=== PATIENT | male | born 1970 | race Caucasian/White ===

== ENCOUNTER 2017-02-04 09:41 | Inpatient (IN) | payer OTHER ==
[2017-02-04 10:15] VITALS: BMI 29.7
--- NOTE | 2017-02-04 16:27 | HP ---
COWS - Scale Resting Pulse: 1= [place] 81-100 Sweatin=Flushed/Facial Moisture Restless Observation: 1= Difficult to Sit Still Pupil Size: 0= Normal to Room Light Bone or Joint Aches: 2= Severe Diffuse Aches Runny Nose/ Eye Tearin= Runny Nose/Eyes GI Upset > 30mins: 2= Nausea/Diarrhea Tremor Observation: 2= Slight Tremor Visible Yawning Observation: 1= 1-2x During Session Anxiety or Irritability: 2=Irritable/Anxious Goose Flesh Skin: 0=Smooth Skin COWS Score: 15 Admission ROS S - HPI Chief Complaint: "I am just trying to get my life in order and be normal." Patient is here to Detox from Heroin. Allergies/Adverse Reactions: Allergies Allergy/AdvReac Type Severity Reaction Status Date / Time No Known Allergies Allergy Verified 02/04/17 12:51 History of Present Illness: Pt. is a 46 YO male here to detox from Heroin. Patient has had 1 previous Detox and 1 previous Rehab admission at [facility] in the past. Longest period without Substance use: approx. 6 months: (11/2015 - 04/2016). Exam Limitations: No Limitations - Ebola screening Have you traveled outside of the country in the last 21 days: No Have you had contact with anyone from an Ebola affected area: No Have you been sick,other than usual withdrawal symptoms: No - Review of Systems Constitutional: Chills, Diaphoresis, Fever, Malaise, Night Sweats, Changes in sleep EENT: reports: Blurred Vision, Tearing, Nose Congestion, Sinus Pressure Respiratory: reports: No Symptoms reported Cardiac: reports: No Symptoms Reported GI: reports: Constipated, Nausea, Vomiting, Abdominal cramping : reports: No Symptoms Reported Musculoskeletal: reports: Back Pain (Lower Back.) Integumentary: reports: No Symptoms Reported Neuro: reports: Tremors Endocrine: reports: No Symptoms Reported Hematology: reports: No Symptoms Reported Psychiatric: reports: Judgement Intact, Mood/Affect Appropiate, Orientated x3, Anxious, Depressed (No Previous Treatment.) Other Systems: Reviewed and Negative Patient History - Patient Medical History Hx Anemia: No Hx Asthma: No Hx Chronic Obstructive Pulmonary Disease (COPD): No Hx Cancer: No Hx Cardiac Disorders: No Hx Congestive Heart Failure: No Hx Hypertension: Yes (non compliant with meds. - recently.) Hx Hypercholesterolemia: Yes (Took medication several months ago, stopped due to side effects, no F/U.) Hx Pacemaker: No HX Cerebrovascular Accident: No Hx Seizures: No Hx Dementia: No Hx Diabetes: Yes (Takes Metformin.) Hx Gastrointestinal Disorders: No Hx Liver Disease: No Hx Genitourinary Disorders: No Hx Sexually Transmitted Disorders: No Hx Renal Disease (ESRD): No Hx Thyroid Disease: No Hx Human Immunodeficiency Virus (HIV): No (Last Tested: 2002: NEGATIVE.) Hx Hepatitis C: No (Last Tested: 2002: NEGATIVE.) Hx Depression: Yes (No Treatment.) Hx Suicide Attempt: No (PATIENT DENIES CURRENT SI / HI.) Hx Bipolar Disorder: No Hx Schizophrenia: No Other Medical History: DENIES. - Patient Surgical History Past Surgical History: No Hx Neurologic Surgery: No Hx Cataract Extraction: No Hx Cardiac Surgery: No Hx Lung Surgery: No Hx Breast Surgery: No Hx Breast Biopsy: No Hx Abdominal Surgery: No Hx Appendectomy: No Hx Cholecystectomy: No Hx Genitourinary Surgery: No Hx Section: No Hx Orthopedic Surgery: No Anesthesia Reaction: No - PPD History Previous Implant?: Yes Documented Results: Negative w/o proof Implanted On Prior R Admission?: Yes Date: 10/07/15 Results: 0 mm PPD to be Administered?: Yes - Reproductive History Patient is a Female of Child Bearing Age (11 -55 yrs old): No (PATIENT IS MALE.) - Smoking Cessation Smoking history: Current every day smoker Have you smoked in the past 12 months: Yes Aproximately how many cigarettes per day: 20 Cigars Per Day: 0 Hx Chewing Tobacco Use: No Initiated information on smoking cessation: Yes 'Breaking Loose' booklet given: 02/04/17 (GIVEN ON UNIT.) - Substance & Tx. History Hx Alcohol Use: No Hx Substance Use: Yes Substance Use Type: Heroin, Opiates (Street Methadone.) Hx Substance Use Treatment: Yes (1 Previous detox and 1 Previous Rehab admission.) - Substances Abused Heroin Route: Inhalation Frequency: Daily Amount used: 6-10 BAGS Age of first use: 23 Date of Last Use: 02/03/[address] ST[address] METHADONE Route: Oral Frequency: 1-2 times per week Amount used: 20-40MG Age of first use: 23 Date of Last Use: 01/31/17 Family Disease History - Family Disease History Family Disease History: Diabetes: Father (in [place]), Mother (in [place]) Admission Physical Exam [facility] - Vital Signs Vital Signs: Vital Signs - 24 hr 02/04/17 10:14 Temperature 97.6 F Pulse Rate 85 Respiratory 18 Rate Blood Pressure 156/96 - Physical General Appearance: Yes: No Apparent Distress, Nourished, Appropriately Dressed , Tremorous, Irritable, Anxious HEENTM: Yes: Hearing grossly Normal, Normocephalic, Normal Voice, FELICE, Pharynx Normal Respiratory: Yes: Chest Non-Tender, Lungs Clear, No Respiratory Distress, No Accessory Muscle Use Neck: Yes: No masses,lesions,Nodules, Supple, Trachea in good position Breast: Yes: Breast Exam Deferred Cardiology: Yes: Regular Rhythm, Regular Rate, S1, S2 Abdominal: Yes: Normal Bowel Sounds, Non Tender, Flat, Soft Genitourinary: Yes: Within Normal Limits Back: Yes: Decreased Range of Motion Musculoskeletal: Yes: Gait Steady, Back pain Extremities: Yes: Normal Range of Motion, Non-Tender, Tremors Neurological: Yes: Fully Oriented, Alert, Normal Mood/Affect, Normal Response Integumentary: Yes: Normal Color, Dry, Warm Lymphatic: Yes: Within Normal Limits - Diagnostic (1) Nicotine dependence Current Visit: Yes Status: Chronic Qualifiers: Nicotine product type: cigarettes Substance use status: uncomplicated Qualified Code(s): F17.210 - Nicotine dependence, cigarettes, uncomplicated (2) Opioid dependence with withdrawal Current Visit: Yes Status: Acute (3) Hypertension Current Visit: Yes Status: Chronic Qualifiers: Hypertension type: essential hypertension Qualified Code(s): I10 - Essential (primary) hypertension (4) Type II diabetes mellitus Current Visit: Yes Status: Chronic Qualifiers: Diabetes mellitus complication status: without complication Diabetes mellitus assisted insulin use: without assisted use Qualified Code(s): E11.9 - Type 2 diabetes mellitus without complications (5) Depression (emotion) Current Visit: Yes Status: Chronic Qualifiers: Depression Type: unspecified Qualified Code(s): F32.9 - Major depressive disorder, single episode, unspecified (6) Hypercholesterolemia Current Visit: Yes Status: Chronic Cleared for Admission [facility] - Detox or Rehab S Level of Care: Medically Managed Detox Regimen/Protocol: Methadone S Breath Alcohol Content Breath Alcohol Content: 0 Urine Drug Screen - Results Drug Screen Negative: No Urine Drug Screen Results: OPI-Opiates, MTD-Methadone, TCA-Tricyclic Antidepress
[2017-02-04] MEDS ORDERED: ACETAMINOPHEN 325 MG TABLET (FP) PO PRN (17:57)
[2017-02-04] MEDS ORDERED: NICOTINE POLACRILEX 2 MG GUM BC PRN (17:57)
[2017-02-04] MEDS ORDERED: MAG HYDROX/AL HYDROX/SIMETH 30 ML UNIT-DOSE CUP PO PRN (17:57)
[2017-02-04] MEDS ORDERED: MAGNESIUM CITRATE 300 ML BOTTLE PO PRN (17:57)
[2017-02-04] MEDS ORDERED: diphenhydrAMINE HCL 50 MG CAPSULE PO PRN (17:57)
[2017-02-04] MEDS ORDERED: guaiFENesin/D-METHORPHAN HB 10 ML UNIT-DOSE CUPS PO PRN (17:57)
[2017-02-04] MEDS ORDERED: MENTHOL/PHENOL 1 EACH UD MM PRN (17:57)
[2017-02-04] MEDS ORDERED: METHADONE HCL 10 MG TABLET (FOR DETOX USE ONLY) PO ONE ×2 (17:57→23:00)
[2017-02-04] MEDS ORDERED: MAGNESIUM HYDROX 2400MG/30ML ORAL SUSPENSION 30 ML CUP PO PRN (17:57)
[2017-02-04] MEDS ORDERED: P-EPHED 60MG/TRIPROLIDI 2.5MG TABLET PO PRN (17:57)
[2017-02-04] MEDS ORDERED: LOPERAMIDE HCL 2 MG CAPSULE PO PRN (17:57)
[2017-02-04] MEDS: metFORMIN HCL 500 MG TABLET (FP) PO SCH (18:43)
[2017-02-04] MEDS: LISINOPRIL 20 MG TABLET (FP) PO SCH (18:44)
[2017-02-04] MEDS: HYDROCHLOROTHIAZIDE 12.5 MG CAPSULE (FP) PO SCH (18:44)
[2017-02-04] MEDS: diazePAM 5 MG TABLET PO PRN (18:44)
[2017-02-04] MEDS: THIAMINE HCL 100 MG TABLET (FP) PO SCH (22:17)
[2017-02-04 23:06] LABS: URINE APPEARANCE CLEAR; URINE BILIRUBIN NEGATIVE (NEGATIVE); URINE BLOOD NEGATIVE (NEGATIVE); URINE COLOR YELLOW; URINE GLUCOSE (UA) NEGATIVE (NEGATIVE); URINE KETONE NEGATIVE (NEGATIVE); URINE LEUK ESTERASE NEGATIVE (NEGATIVE); URINE NITRITE NEGATIVE (NEGATIVE); URINE PROTEIN NEGATIVE (NEGATIVE); URINE UROBILINOGEN NEGATIVE mg/dL (0.2-1.0)
[2017-02-05] MEDS: diazePAM 5 MG TABLET PO PRN ×5 (00:44→22:06)
[2017-02-05] MEDS: metFORMIN HCL 500 MG TABLET (FP) PO SCH (07:26)
--- NOTE | 2017-02-05 09:25 | EKG ---
Test Reason : Blood Pressure : / mmHG Vent. Rate : 070 BPM Atrial Rate : 070 BPM P-R Int : 140 ms QRS Dur : 094 ms QT Int : 380 ms P-R-T Axes : 050 082 047 degrees QTc Int : 410 ms NORMAL SINUS RHYTHM NON-SPECIFIC INTRA-VENTRICULAR CONDUCTION DELAY NO PREVIOUS ECGS AVAILABLE Confirmed by JESSICA REYNOSO MD ([id number]) on 02/05/2017 9:25:08 AM Referred By: Confirmed By:JESSICA REYNOSO MD
[2017-02-05] MEDS ORDERED: METHADONE HCL 10 MG TABLET (FOR DETOX USE ONLY) PO ONE (10:00)
[2017-02-05] MEDS: LISINOPRIL 20 MG TABLET (FP) PO SCH (10:14)
[2017-02-05] MEDS: PRENATAL VITAMINS W/ FOLIC ACID TABLET (FP) PO SCH (10:14)
[2017-02-05] MEDS: HYDROCHLOROTHIAZIDE 12.5 MG CAPSULE (FP) PO SCH (10:14)
--- NOTE | 2017-02-05 10:16 | HP ---
COWS - Scale Resting Pulse: 1= [place] 81-100 Sweatin=Flushed/Facial Moisture Restless Observation: 1= Difficult to Sit Still Pupil Size: 1= Pupils >than Normal Bone or Joint Aches: 2= Severe Diffuse Aches Runny Nose/ Eye Tearin= Runny Nose/Eyes GI Upset > 30mins: 2= Nausea/Diarrhea Tremor Observation: 2= Slight Tremor Visible Yawning Observation: 1= 1-2x During Session Anxiety or Irritability: 2=Irritable/Anxious Goose Flesh Skin: 0=Smooth Skin COWS Score: 16 Admission ROS S - HPI Allergies/Adverse Reactions: Allergies Allergy/AdvReac Type Severity Reaction Status Date / Time No Known Allergies Allergy Verified 02/04/17 12:51 - Ebola screening Have you traveled outside of the country in the last 21 days: No Have you had contact with anyone from an Ebola affected area: No Have you been sick,other than usual withdrawal symptoms: No Patient History - Patient Medical History Hx Anemia: No Hx Asthma: No Hx Chronic Obstructive Pulmonary Disease (COPD): No Hx Cancer: No Hx Cardiac Disorders: No Hx Congestive Heart Failure: No Hx Hypertension: Yes (non compliant with meds. - recently.) Hx Hypercholesterolemia: Yes (Took medication several months ago, stopped due to side effects, no F/U.) Hx Pacemaker: No HX Cerebrovascular Accident: No Hx Seizures: No Hx Dementia: No Hx Diabetes: Yes (Takes Metformin.) Hx Gastrointestinal Disorders: No Hx Liver Disease: No Hx Genitourinary Disorders: No Hx Sexually Transmitted Disorders: No Hx Renal Disease (ESRD): No Hx Thyroid Disease: No Hx Human Immunodeficiency Virus (HIV): No (Last Tested: 2002: NEGATIVE.) Hx Hepatitis C: No (Last Tested: 2002: NEGATIVE.) Hx Depression: Yes (No Treatment.) Hx Suicide Attempt: No (PATIENT DENIES CURRENT SI / HI.) Hx Bipolar Disorder: No Hx Schizophrenia: No Other Medical History: DENIES. - Patient Surgical History Past Surgical History: No Hx Neurologic Surgery: No Hx Cataract Extraction: No Hx Cardiac Surgery: No Hx Lung Surgery: No Hx Breast Surgery: No Hx Breast Biopsy: No Hx Abdominal Surgery: No Hx Appendectomy: No Hx Cholecystectomy: No Hx Genitourinary Surgery: No Hx Section: No Hx Orthopedic Surgery: No Anesthesia Reaction: No - PPD History Previous Implant?: Yes Documented Results: Negative w/o proof Implanted On Prior [facility] Admission?: Yes Date: 10/07/15 Results: 0 mm - Smoking Cessation Smoking history: Current every day smoker Have you smoked in the past 12 months: Yes Aproximately how many cigarettes per day: 20 Cigars Per Day: 0 Hx Chewing Tobacco Use: No Initiated information on smoking cessation: Yes - Substances Abused Heroin Route: Inhalation Frequency: Daily Amount used: 6-10 BAGS Age of first use: 23 Date of Last Use: 02/03/[address] METHADONE Route: Oral Frequency: 1-2 times per week Amount used: 20-40MG Age of first use: 23 Date of Last Use: 01/31/17 Family Disease History - Family Disease History Family Disease History: Diabetes: Father (in [place]), Mother (in [place]) Admission Physical Exam [facility] - Vital Signs Vital Signs: Vital Signs - 24 hr 02/04/17 02/04/17 02/04/17 10:14 18:58 22:32 Temperature 97.6 F 98.1 F 97.1 F L Pulse Rate 85 77 106 H Respiratory 18 16 20 Rate Blood Pressure 156/96 157/99 122/76 02/05/17 02/05/17 02/05/17 00:30 03:29 03:30 Temperature Pulse Rate Respiratory 18 18 18 Rate Blood Pressure 02/05/17 06:24 Temperature 97.5 F L Pulse Rate 65 Respiratory 16 Rate Blood Pressure 135/90 [facility] Breath Alcohol Content Breath Alcohol Content: 0 Urine Drug Screen - Results Drug Screen Negative: No Urine Drug Screen Results: OPI-Opiates, MTD-Methadone, TCA-Tricyclic Antidepress
[2017-02-05 10:18] LABS: MCH 29.5 pg (25.7-33.7); MCHC 33.3 g/dl (32.0-35.9); MEAN CELL VOLUME 88.6 fl (80-96); MEAN PLT VOLUME 8.8 fl (7.5-11.1); PLATELET COUNT 380 K/MM3 (134-434); WHITE BLOOD COUNT 7.8 K/mm3 (4.0-10.0)
--- NOTE | 2017-02-05 10:19 | PN ---
S CIWA - CIWA Score Nausea/Vomitin Muscle Tremors: 3 Anxiety: 3 Agitation: 2 Paroxysmal Sweats: 1-Minimal Palms Moist Orientation: 0-Oriented Tacttile Disturbances: 1-Very Mild Itch/Numbness Auditory Disturbances: 1-Very Mild Visual Disturbances: 1-Very Mild Sensitivity Headache: 2-Mild CIWA-Ar Total Score: 17 [facility] COWS - Scale Resting Pulse: 1= [place] 81-100 Sweatin= Chills/Flushing Restless Observation: 3= Extraneous Movement Pupil Size: 1= Pupils >than Normal Bone or Joint Aches: 2= Severe Diffuse Aches Runny Nose/ Eye Tearin= Runny Nose/Eyes GI Upset > 30mins: 3= Vomiting/Diarrhea Tremor Observation of Outstretched Hands: 2= Slight Tremor Visible Yawning Observation: 1= 1-2x During Session Anxiety or Irritability: 2=Irritable/Anxious Goose Flesh Skin: 0=Smooth Skin COWS Score: 18 S Progress Note (SOAP) Subjective: alert,irritable,anxious,interrupted sleep,tremor,pain in the body and back Objective: 02/05/17 10:17 Vital Signs Temperature 98.1 F 02/05/17 10:00 Pulse Rate 83 02/05/17 10:00 Respiratory Rate 16 02/05/17 10:00 Blood Pressure 137/89 02/05/17 10:00 O2 Sat by Pulse Oximetry (%) ekg nsr,normal ecg Laboratory Last Values POC Glucometer 146 UNITS (()) 02/04/17 13:01 Urine Color Yellow 02/04/17 21:30 Urine Appearance Clear 02/04/17 21:30 Urine pH 5.0 (5.0-8.0) 02/04/17 21:30 Urine Protein Negative (NEGATIVE) 02/04/17 21:30 Urine Glucose (UA) Negative (NEGATIVE) 02/04/17 21:30 Urine Ketones Negative (NEGATIVE) 02/04/17 21:30 Urine Blood Negative (NEGATIVE) 02/04/17 21:30 Urine Nitrite Negative (NEGATIVE) 02/04/17 21:30 Urine Bilirubin Negative (NEGATIVE) 02/04/17 21:30 Urine Urobilinogen Negative mg/dL (0.2-1.0) 02/04/17 21:30 Ur Leukocyte Esterase Negative (NEGATIVE) 02/04/17 21:30 labs pending Assessment: 02/05/17 10:18 withdrawal symptom Plan: continue detox
[2017-02-05 10:42] LABS: ALK PHOS 101 U/L (45-117); ANION GAP 7 (8-16); BILIRUBIN,TOTAL 0.5 mg/dL (0.2-1.0); CALCIUM 9.7 mg/dL (8.5-10.1); CO2 33 mmol/L (21-32); CREATININE 0.9 mg/dL (0.7-1.3); GLUCOSE,RANDOM 116 mg/dL (74-106); SGOT/AST 10 U/L (15-37); SGPT/ALT 15 U/L (12-78); TOT PROT 6.7 g/dl (6.4-8.2)
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
[2017-02-05] MEDS: ZOLPIDEM TARTRATE 10 MG TABLET (PARK CARE ONLY) PO PRN (22:06)
[2017-02-05] MEDS: THIAMINE HCL 100 MG TABLET (FP) PO SCH (22:06)
[2017-02-06] MEDS: diazePAM 5 MG TABLET PO PRN ×4 (02:57→20:53)
[2017-02-06] MEDS: metFORMIN HCL 500 MG TABLET (FP) PO SCH (07:18)
[2017-02-06] MEDS ORDERED: METHADONE HCL 5 MG TABLET (FOR DETOX USE ONLY) PO ONE (10:00)
[2017-02-06] MEDS: HYDROCHLOROTHIAZIDE 12.5 MG CAPSULE (FP) PO SCH (10:05)
[2017-02-06] MEDS: LISINOPRIL 20 MG TABLET (FP) PO SCH (10:05)
[2017-02-06] MEDS: PRENATAL VITAMINS W/ FOLIC ACID TABLET (FP) PO SCH (10:05)
--- NOTE | 2017-02-06 11:07 | PN ---
[facility] COWS - Scale Resting Pulse: 1= [place] 81-100 Sweatin=Flushed/Facial Moisture Restless Observation: 1= Difficult to Sit Still Pupil Size: 0= Normal to Room Light Bone or Joint Aches: 2= Severe Diffuse Aches Runny Nose/ Eye Tearin= Runny Nose/Eyes GI Upset > 30mins: 2= Nausea/Diarrhea Tremor Observation of Outstretched Hands: 2= Slight Tremor Visible Yawning Observation: 1= 1-2x During Session Anxiety or Irritability: 2=Irritable/Anxious Goose Flesh Skin: 0=Smooth Skin COWS Score: 15 [facility] Progress Note (SOAP) Subjective: Sweating,anxiety,tremors,sweating,interrupted sleep,restless. Objective: 02/06/17 11:06 Last Vital Signs Temp Pulse Resp BP Pulse Ox 97.7 F 92 H 20 147/100 02/06/17 09:42 02/06/17 09:42 02/06/17 09:42 02/06/17 09:42 Laboratory Results - last 24 hr 02/04/17 02/05/17 02/05/17 21:30 06:00 07:22 POC Glucometer 107 Urine Color Yellow Urine Appearance Clear Urine pH 5.0 Ur Specific [place] 1.025 Urine Protein Negative Urine Glucose (UA) Negative Urine Ketones Negative Urine Blood Negative Urine Nitrite Negative Urine Bilirubin Negative Urine Urobilinogen Negative Ur Leukocyte Esterase Negative RPR Titer Nonreactive 02/06/17 05:58 POC Glucometer 130 Urine Color Urine Appearance Urine pH Ur Specific [place] Urine Protein Urine Glucose (UA) Urine Ketones Urine Blood Urine Nitrite Urine Bilirubin Urine Urobilinogen Ur Leukocyte Esterase RPR Titer Assessment: 02/06/17 11:06 Withdrawal sx. Plan: Continue detox
[2017-02-06] MEDS: THIAMINE HCL 100 MG TABLET (FP) PO SCH (22:09)
[2017-02-06] MEDS: ZOLPIDEM TARTRATE 10 MG TABLET (PARK CARE ONLY) PO PRN (22:11)
[2017-02-07] MEDS: diazePAM 5 MG TABLET PO PRN ×4 (01:41→14:33)
[2017-02-07] MEDS ORDERED: CYCLOBENZAPRINE HCL 10 MG TABLET (FP) PO ONE (09:32)
[2017-02-07] MEDS ORDERED: METHADONE HCL 5 MG TABLET (FOR DETOX USE ONLY) PO ONE (10:00)
[2017-02-07] MEDS: HYDROCHLOROTHIAZIDE 12.5 MG CAPSULE (FP) PO SCH (10:22)
[2017-02-07] MEDS: PRENATAL VITAMINS W/ FOLIC ACID TABLET (FP) PO SCH (10:22)
[2017-02-07] MEDS: cloNIDine HCL 0.1 MG TABLET PO SCH ×2 (10:22→22:54)
[2017-02-07] MEDS: LISINOPRIL 20 MG TABLET (FP) PO SCH (10:22)
[2017-02-07] MEDS: CYCLOBENZAPRINE HCL 10 MG TABLET (FP) PO SCH ×2 (14:33→22:54)
--- NOTE | 2017-02-07 14:40 | PN ---
[facility] Progress Note (SOAP) Subjective: Sweating,interrupted sleep,restless Objective: 02/07/17 14:39 Vital Signs - 8 hr 02/07/17 10:00 Temperature 98.4 F Pulse Rate 98 H Respiratory 16 Rate Blood Pressure 141/70 Laboratory Last Values WBC 7.8 K/mm3 (4.0-10.0) 02/05/17 06:00 RBC 4.41 M/mm3 (4.00-5.60) 02/05/17 06:00 Hgb 13.0 GM/dL (11.7-16.9) 02/05/17 06:00 Hct 39.0 % (35.4-49) 02/05/17 06:00 MCV 88.6 fl (80-96) 02/05/17 06:00 MCH 29.5 pg (25.7-33.7) 02/05/17 06:00 MCHC 33.3 g/dl (32.0-35.9) 02/05/17 06:00 RDW 13.0 % (11.9-15.9) 02/05/17 06:00 Plt Count 380 K/MM3 (134-434) D 02/05/17 06:00 MPV 8.8 fl (7.5-11.1) 02/05/17 06:00 Sodium 145 mmol/L (136-145) 02/05/17 06:00 Potassium 5.3 mmol/L (3.5-5.1) H D 02/05/17 06:00 Chloride 105 mmol/L (98-107) 02/05/17 06:00 Carbon Dioxide 33 mmol/L (21-32) H 02/05/17 06:00 Anion Gap 7 (8-16) L 02/05/17 06:00 BUN 21 mg/dL (7-18) H D 02/05/17 06:00 Creatinine 0.9 mg/dL (0.7-1.3) 02/05/17 06:00 Creat Clearance w eGFR > 60 (>60) 02/05/17 06:00 POC Glucometer 126 UNITS (()) 02/07/17 05:49 Random Glucose 116 mg/dL (74-106) H D 02/05/17 06:00 Calcium 9.7 mg/dL (8.5-10.1) 02/05/17 06:00 Total Bilirubin 0.5 mg/dL (0.2-1.0) D 02/05/17 06:00 AST 10 U/L (15-37) L 02/05/17 06:00 ALT 15 U/L (12-78) D 02/05/17 06:00 Alkaline Phosphatase 101 U/L (45-117) 02/05/17 06:00 Total Protein 6.7 g/dl (6.4-8.2) 02/05/17 06:00 Albumin 4.0 g/dl (3.4-5.0) D 02/05/17 06:00 Urine Color Yellow 02/04/17 21:30 Urine Appearance Clear 02/04/17 21:30 Urine pH 5.0 (5.0-8.0) 02/04/17 21:30 Ur Specific [place] 1.025 (1.005-1.025) 02/04/17 21:30 Urine Protein Negative (NEGATIVE) 02/04/17 21:30 Urine Glucose (UA) Negative (NEGATIVE) 02/04/17 21:30 Urine Ketones Negative (NEGATIVE) 02/04/17 21:30 Urine Blood Negative (NEGATIVE) 02/04/17 21:30 Urine Nitrite Negative (NEGATIVE) 02/04/17 21:30 Urine Bilirubin Negative (NEGATIVE) 02/04/17 21:30 Urine Urobilinogen Negative mg/dL (0.2-1.0) 02/04/17 21:30 Ur Leukocyte Esterase Negative (NEGATIVE) 02/04/17 21:30 RPR Titer Nonreactive (NONREACTIVE) 02/05/17 06:00 labs noted Assessment: 02/07/17 14:40 Withdrawal sx. Plan: Continue detox
[2017-02-07] MEDS: THIAMINE HCL 100 MG TABLET (FP) PO SCH (22:55)
[2017-02-07] MEDS: ZOLPIDEM TARTRATE 10 MG TABLET (PARK CARE ONLY) PO PRN (22:56)
[2017-02-08] MEDS: IBUPROFEN 400 MG TABLET (FP) PO PRN ×2 (00:49→10:12)
[2017-02-08] MEDS: hydrOXYzine PAMOATE 50 MG CAPSULE (FP) PO PRN ×2 (00:49→05:29)
[2017-02-08] MEDS: CYCLOBENZAPRINE HCL 10 MG TABLET (FP) PO SCH ×3 (05:27→22:25)
[2017-02-08] MEDS: metFORMIN HCL 500 MG TABLET (FP) PO SCH (07:14)
--- NOTE | 2017-02-08 09:47 | PN ---
S Progress Note (SOAP) Subjective: ALERT,IRRITABLE,INTERRUPTED SLEEP, Objective: 02/08/17 09:46 Vital Signs Temperature 96.3 F L 02/08/17 05:52 Pulse Rate 69 02/08/17 05:52 Respiratory Rate 16 02/08/17 05:52 Blood Pressure 101/56 02/08/17 05:52 O2 Sat by Pulse Oximetry (%) Assessment: 02/08/17 09:46 WITHDRAWAL SYMPTOM Plan: CONTINUE DETOX,DISCHARGE IN AM
[2017-02-08] MEDS ORDERED: METHADONE HCL 10 MG TABLET (FOR DETOX USE ONLY) PO ONE (10:00)
[2017-02-08] MEDS: HYDROCHLOROTHIAZIDE 12.5 MG CAPSULE (FP) PO SCH (10:09)
[2017-02-08] MEDS: PRENATAL VITAMINS W/ FOLIC ACID TABLET (FP) PO SCH (10:09)
[2017-02-08] MEDS: LISINOPRIL 20 MG TABLET (FP) PO SCH (10:09)
[2017-02-08] MEDS: cloNIDine HCL 0.1 MG TABLET PO SCH ×2 (10:09→22:58)
[2017-02-08] MEDS: ZOLPIDEM TARTRATE 10 MG TABLET (PARK CARE ONLY) PO PRN (22:25)
[2017-02-08] MEDS: THIAMINE HCL 100 MG TABLET (FP) PO SCH (22:26)
[2017-02-09] MEDS: hydrOXYzine PAMOATE 50 MG CAPSULE (FP) PO PRN (02:17)
[2017-02-09] MEDS: IBUPROFEN 400 MG TABLET (FP) PO PRN (02:17)
[2017-02-09] MEDS: CYCLOBENZAPRINE HCL 10 MG TABLET (FP) PO SCH (05:02)
[2017-02-09] MEDS ORDERED: METHADONE HCL 5 MG TABLET (FOR DETOX USE ONLY) PO ONE (06:00)
[2017-02-09] MEDS: metFORMIN HCL 500 MG TABLET (FP) PO SCH (07:06)
--- NOTE | 2017-02-09 08:15 | DS ---
[facility] Detox Discharge Summary Admission Date: 02/04/17 Discharge Date: 02/09/17 - History Present History: Opioid Dependence Additional Comments: follow up with after care program as arrangement Pertinent Past History: type 2 dm hypercholesterolemia depression - Physical Exam Results Vital Signs: Vital Signs Temperature 96.3 F L 02/09/17 06:02 Pulse Rate 71 02/09/17 06:02 Respiratory Rate 18 02/09/17 06:02 Blood Pressure 112/69 02/09/17 06:02 O2 Sat by Pulse Oximetry (%) Pertinent Admission Physical Exam Findings: withdrawal symptom - Treatment Hospital Course: Detox Protocol Followed, Detoxed Safely, Responded well, Discharged Condition Good, Rehab Referral Accepted Patient has Accepted [facility] Ref[facility] - Medication Discharge Medications: Ambulatory Orders Hydrochlorothiazide [Hctz -] 12.5 mg PO DAILY 02/04/17 Lisinopril [Prinivil] 20 mg PO DAILY 02/04/17 Metformin HCl [Glucophage] 1,000 mg PO DAILY 02/04/17 - Diagnosis (1) Hypercholesterolemia Current Visit: Yes Status: Chronic (2) Hypertension Current Visit: Yes Status: Chronic Qualifiers: Hypertension type: essential hypertension Qualified Code(s): I10 - Essential (primary) hypertension (3) Nicotine dependence Current Visit: Yes Status: Chronic Qualifiers: Nicotine product type: cigarettes Substance use status: uncomplicated Qualified Code(s): F17.210 - Nicotine dependence, cigarettes, uncomplicated (4) Type II diabetes mellitus Current Visit: Yes Status: Chronic Qualifiers: Diabetes mellitus complication status: without complication Diabetes mellitus intermediate card tender insulin use: without intermediate card tender use Qualified Code(s): E11.9 - Type 2 diabetes mellitus without complications (5) Substance induced mood disorder Current Visit: No Status: Chronic (6) Substance-induced sleep disorder Current Visit: No Status: Chronic - AMA Did Patient Leave Against Medical Advice: No
[2017-02-09] MEDS: LISINOPRIL 20 MG TABLET (FP) PO SCH (10:03)
[2017-02-09] MEDS: PRENATAL VITAMINS W/ FOLIC ACID TABLET (FP) PO SCH (10:03)
[2017-02-09] MEDS: cloNIDine HCL 0.1 MG TABLET PO SCH (10:03)
[2017-02-09] MEDS: HYDROCHLOROTHIAZIDE 12.5 MG CAPSULE (FP) PO SCH (10:03)
[2017-02-09 11:51] VITALS: BP 123/72; PULSE 116; TEMP 98.1
== END 2017-02-09 12:00 | disposition other institution (70) | DRG 897 ==
LOC: YASAS 09:41 → Y6N 15:37
PROVIDERS: ADMIT Internal Medicine; ATTEND Internal Medicine
PROC: HZ2ZZZZ Detoxification Services for Substance Abuse Treatment (ICD-10-PCS; principal; 2017-02-04)
DX: F11.23 Opioid dependence with withdrawal (principal); F11.288 Opioid dependence with other opioid-induced disorder; F19.282 Other psychoactive substance dependence with psychoactive substance-induced sleep disorder; F17.210 Nicotine dependence, cigarettes, uncomplicated; F19.24 Other psychoactive substance dependence with psychoactive substance-induced mood disorder; F32.9 Major depressive disorder, single episode, unspecified; I10 Essential (primary) hypertension; E78.00 Pure hypercholesterolemia, unspecified; E11.9 Type 2 diabetes mellitus without complications; Z79.84 Long term (current) use of oral hypoglycemic drugs; Z91.14 Patient's other noncompliance with medication regimen
CPT/HCPCS: 36415; 80053; 81003; 85027; 86593; 93005; 93010

== ENCOUNTER 2017-02-09 12:12 | Inpatient (IN) | payer OTHER ==
[2017-02-09 12:28] VITALS: BMI 27.7
--- NOTE | 2017-02-09 12:59 | HP ---
[facility] Rehab Assess/Revision - Admission History Admitted to Rehab from: [facility] [place] Date of Admission to Rehab: 02/09/17 - Vital signs Vital Signs: Vital Signs Period Temp Pulse Resp BP Sys/Tesfaye Pulse Ox Last 24 Hr 97.9 F 96 20 109/72 - Findings Detox History & Physical reviewed: Yes Concur with findings: Yes Comments/Additional Findings: for rehab as protocol
[2017-02-09] MEDS ORDERED: ACETAMINOPHEN 325 MG TABLET (FP) PO PRN (13:00)
[2017-02-09] MEDS ORDERED: diphenhydrAMINE HCL 50 MG CAPSULE PO PRN (13:00)
[2017-02-09] MEDS ORDERED: MAGNESIUM HYDROX 2400MG/30ML ORAL SUSPENSION 30 ML CUP PO PRN (13:00)
[2017-02-09] MEDS ORDERED: LOPERAMIDE HCL 2 MG CAPSULE PO PRN (13:00)
[2017-02-09] MEDS ORDERED: MAGNESIUM CITRATE 300 ML BOTTLE PO PRN (13:00)
[2017-02-09] MEDS ORDERED: P-EPHED 60MG/TRIPROLIDI 2.5MG TABLET PO PRN (13:00)
[2017-02-09] MEDS ORDERED: MAG HYDROX/AL HYDROX/SIMETH 30 ML UNIT-DOSE CUP PO PRN (13:00)
[2017-02-09] MEDS ORDERED: MENTHOL/PHENOL 1 EACH UD MM PRN (13:00)
[2017-02-09] MEDS ORDERED: guaiFENesin/D-METHORPHAN HB 10 ML UNIT-DOSE CUPS PO PRN (13:00)
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
[2017-02-09] MEDS: IBUPROFEN 400 MG TABLET (FP) PO PRN (17:07)
[2017-02-09] MEDS: hydrOXYzine PAMOATE 50 MG CAPSULE (FP) PO PRN ×2 (17:07→21:22)
[2017-02-09] MEDS: THIAMINE HCL 100 MG TABLET (FP) PO SCH (21:22)
[2017-02-10] MEDS: hydrOXYzine PAMOATE 50 MG CAPSULE (FP) PO PRN ×2 (06:28→21:35)
[2017-02-10] MEDS: metFORMIN HCL 500 MG TABLET (FP) PO SCH (07:41)
[2017-02-10] MEDS: PRENATAL VITAMINS W/ FOLIC ACID TABLET (FP) PO SCH (09:54)
[2017-02-10] MEDS: LISINOPRIL 20 MG TABLET (FP) PO SCH (09:55)
[2017-02-10] MEDS: HYDROCHLOROTHIAZIDE 12.5 MG CAPSULE (FP) PO SCH (09:55)
[2017-02-10] MEDS: NICOTINE 21 MG/24 HOURS TOPICAL PATCH TD SCH (09:56)
[2017-02-10] MEDS: THIAMINE HCL 100 MG TABLET (FP) PO SCH (21:34)
[2017-02-11] MEDS: hydrOXYzine PAMOATE 50 MG CAPSULE (FP) PO PRN ×2 (06:17→20:23)
[2017-02-11] MEDS: metFORMIN HCL 500 MG TABLET (FP) PO SCH (06:17)
[2017-02-11] MEDS: HYDROCHLOROTHIAZIDE 12.5 MG CAPSULE (FP) PO SCH (09:50)
[2017-02-11] MEDS: PRENATAL VITAMINS W/ FOLIC ACID TABLET (FP) PO SCH (09:50)
[2017-02-11] MEDS: LISINOPRIL 20 MG TABLET (FP) PO SCH (09:50)
[2017-02-11] MEDS: NICOTINE 21 MG/24 HOURS TOPICAL PATCH TD SCH (09:50)
[2017-02-11] MEDS: IBUPROFEN 400 MG TABLET (FP) PO PRN (09:51)
[2017-02-11] MEDS: THIAMINE HCL 100 MG TABLET (FP) PO SCH (21:00)
[2017-02-12] MEDS: hydrOXYzine PAMOATE 50 MG CAPSULE (FP) PO PRN ×2 (05:03→21:40)
[2017-02-12] MEDS: IBUPROFEN 400 MG TABLET (FP) PO PRN ×2 (05:03→21:41)
[2017-02-12] MEDS: metFORMIN HCL 500 MG TABLET (FP) PO SCH (06:47)
[2017-02-12] MEDS: HYDROCHLOROTHIAZIDE 12.5 MG CAPSULE (FP) PO SCH (09:47)
[2017-02-12] MEDS: LISINOPRIL 20 MG TABLET (FP) PO SCH (09:47)
[2017-02-12] MEDS: PRENATAL VITAMINS W/ FOLIC ACID TABLET (FP) PO SCH (09:47)
[2017-02-12] MEDS: CYCLOBENZAPRINE HCL 10 MG TABLET (FP) PO PRN ×2 (09:48→21:40)
[2017-02-12] MEDS: NICOTINE 21 MG/24 HOURS TOPICAL PATCH TD SCH (09:49)
[2017-02-12] MEDS: THIAMINE HCL 100 MG TABLET (FP) PO SCH (21:40)
[2017-02-13] MEDS: IBUPROFEN 400 MG TABLET (FP) PO PRN (06:16)
[2017-02-13] MEDS: hydrOXYzine PAMOATE 50 MG CAPSULE (FP) PO PRN ×2 (06:17→21:41)
[2017-02-13] MEDS: CYCLOBENZAPRINE HCL 10 MG TABLET (FP) PO PRN ×2 (06:17→21:41)
[2017-02-13] MEDS: metFORMIN HCL 500 MG TABLET (FP) PO SCH (06:56)
[2017-02-13] MEDS: HYDROCHLOROTHIAZIDE 12.5 MG CAPSULE (FP) PO SCH (09:51)
[2017-02-13] MEDS: PRENATAL VITAMINS W/ FOLIC ACID TABLET (FP) PO SCH (09:51)
[2017-02-13] MEDS: LISINOPRIL 20 MG TABLET (FP) PO SCH (09:51)
[2017-02-13] MEDS: NICOTINE 21 MG/24 HOURS TOPICAL PATCH TD SCH (09:52)
[2017-02-13] MEDS: THIAMINE HCL 100 MG TABLET (FP) PO SCH (21:41)
[2017-02-14] MEDS: IBUPROFEN 400 MG TABLET (FP) PO PRN ×2 (02:48→21:44)
[2017-02-14] MEDS: hydrOXYzine PAMOATE 50 MG CAPSULE (FP) PO PRN ×2 (02:48→21:43)
[2017-02-14] MEDS: CYCLOBENZAPRINE HCL 10 MG TABLET (FP) PO PRN ×2 (06:10→21:43)
[2017-02-14] MEDS: metFORMIN HCL 500 MG TABLET (FP) PO SCH (07:22)
[2017-02-14] MEDS: LISINOPRIL 20 MG TABLET (FP) PO SCH (09:47)
[2017-02-14] MEDS: NICOTINE 21 MG/24 HOURS TOPICAL PATCH TD SCH (09:47)
[2017-02-14] MEDS: HYDROCHLOROTHIAZIDE 12.5 MG CAPSULE (FP) PO SCH (09:47)
[2017-02-14] MEDS: PRENATAL VITAMINS W/ FOLIC ACID TABLET (FP) PO SCH (09:47)
[2017-02-14] MEDS: THIAMINE HCL 100 MG TABLET (FP) PO SCH (21:43)
[2017-02-15] MEDS: CYCLOBENZAPRINE HCL 10 MG TABLET (FP) PO PRN (03:47)
[2017-02-15] MEDS: hydrOXYzine PAMOATE 50 MG CAPSULE (FP) PO PRN (03:47)
[2017-02-15] MEDS: metFORMIN HCL 500 MG TABLET (FP) PO SCH (06:17)
--- NOTE | 2017-02-15 06:51 | PN ---
Psychiatric Progress Note Vital Signs: Vital Signs Period Temp Pulse Resp BP Sys/Tesfaye Pulse Ox Last 24 Hr 112 18 128/82 Date of Session: 02/15/17 Chief Complaint:: Discharge Note HPI: Patient addressing Opoid Dependence comorbid with opoid Dependence on Agonist Therapy, Nicotine Dependence, Substance-Induced Mood Disorder and Substance-Induced Sleep Disorder ROS: HTN, Hyperlipidemia, type 2 DM were medically managed Current Medications: Active Medications Generic Name Dose Route Start Last Admin Trade Name Freq PRN Reason Stop Dose Admin Acetaminophen 650 mg 02/09/17 13:00 Tylenol - PO Q4H PRN FEVER OR PAIN Al Hydroxide/Mg Hydroxide 30 ml 02/09/17 13:00 02/10/17 09:55 Mylanta Oral Suspension - PO 30 ml Q6H PRN Administration DYSPEPSIA Cyclobenzaprine HCl 10 mg 02/10/17 07:14 02/15/17 03:47 Flexeril - PO 10 mg TID PRN Administration MUSCLE SPASMS Diphenhydramine HCl 50 mg 02/09/17 13:00 02/15/17 00:40 Benadryl - PO 50 mg HSMR1 PRN Administration FOR ITCHING Eucalyptus/Menthol/Phenol/Sorbitol 1 each 02/09/17 13:00 Cepastat Lozenge - MM Q4H PRN SORE THROAT Guaifenesin 10 ml 02/09/17 13:00 Robitussin Dm - PO Q6H PRN COUGH Hydrochlorothiazide 12.5 mg 02/10/17 10:00 02/14/17 09:47 Hctz - PO 12.5 mg DAILY LESLY Administration Hydroxyzine Pamoate 50 mg 02/09/17 13:00 02/15/17 03:47 Vistaril - PO 50 mg Q4H PRN Administration AGITATION Ibuprofen 400 mg 02/09/17 13:00 02/14/17 21:44 Motrin - PO 400 mg Q6H PRN Administration PAIN Lisinopril 20 mg 02/10/17 10:00 02/14/17 09:47 Prinivil PO 20 mg DAILY LESLY Administration Loperamide HCl 4 mg 02/09/17 13:00 Imodium - PO Q6H PRN DIARRHEA Magnesium Hydroxide 30 ml 02/09/17 13:00 Milk Of Magnesia - PO DAILY PRN CONSTIPATION Metformin HCl 1,000 mg 02/10/17 07:00 08/07/17 06:17 Glucophage - PO 1,000 mg DAILY@0700 LESLY Administration Nicotine 21 mg 02/10/17 10:00 02/14/17 09:47 Nicoderm Patch - TD Not Given DAILY [facility] Multivit/Folic Acid/Iron 1 tab 02/10/17 10:00 02/14/17 09:47 Vitamins (Sjr) - PO 1 tab DAILY LESLY Administration Pseudoephedrine/Triprolidine 1 combo 02/09/17 13:00 Actifed - PO TID PRN NASAL CONGESTION Thiamine HCl 100 mg 02/09/17 22:00 02/14/17 21:43 Vitamin B1 - PO 100 mg HS LESLY Administration Current Side Effect: No Lab tests ordered: Yes Lab tests reviewed: Yes Provider note:: Patient has completed this program today. He has met his treament goalaand will continue to address his issues in 12 step by attending AA /NA. 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 He responded well to Belsomra 10 mg po HS prn for insomnia. He is stable for discharge today Total face to face time:: 35 Mental Status Exam - Mental Status Exam Alert and Oriented to: Time, Place, Person Cognitive Function: Fair Patient Appearance: Well Groomed Mood: Hopeful, Euthymic Affect: Appropriate Patient Behavior: Cooperative Speech Pattern: Clear Voice Loudness: Normal Thought Process: Intact, Goal Oriented Thought Disorder: Not Present Hallucinations: Denies Suicidal Ideation: Denies Homicidal Ideation: Denies Insight/Judgement: Fair Sleep: Fair Appetite: Good Muscle strength/Tone: Normal Gait/Station: Normal Psychiatric Treatment Plan - Problem List (1) Opioid dependence Current Visit: Yes (2) Nicotine dependence Current Visit: No Qualifiers: Nicotine product type: cigarettes Substance use status: uncomplicated Qualified Code(s): F17.210 - Nicotine dependence, cigarettes, uncomplicated (3) Opioid-induced mood disorder Current Visit: No (4) Opioid-induced sleep disorder Current Visit: No (5) Hypertension Current Visit: No Qualifiers: Hypertension type: essential hypertension Qualified Code(s): I10 - Essential (primary) hypertension (6) Hypercholesterolemia Current Visit: No (7) Type II diabetes mellitus Current Visit: No Qualifiers: Diabetes mellitus complication status: without complication Diabetes mellitus oysterman insulin use: without oysterman use Qualified Code(s): E11.9 - Type 2 diabetes mellitus without complications Initial treatment plan: Patient is discharged today and will be attending AA/NA as he refuses referral to outpatient treatment
[2017-02-15 07:04] VITALS: TEMP 97.7
[2017-02-15 08:27] VITALS: BP 144/96; PULSE 110
[2017-02-15] MEDS: HYDROCHLOROTHIAZIDE 12.5 MG CAPSULE (FP) PO SCH (09:21)
[2017-02-15] MEDS: PRENATAL VITAMINS W/ FOLIC ACID TABLET (FP) PO SCH (09:21)
[2017-02-15] MEDS: LISINOPRIL 20 MG TABLET (FP) PO SCH (09:21)
[2017-02-15] MEDS: NICOTINE 21 MG/24 HOURS TOPICAL PATCH TD SCH (09:22)
== END 2017-02-15 09:25 | disposition home or self-care (01) | DRG 895 ==
LOC: YASAS 12:12 → Y3W 12:13
PROVIDERS: ADMIT Psychiatry & Neurology Psychiatry; ATTEND Psychiatry & Neurology Psychiatry
PROC: HZ42ZZZ Group Counseling for Substance Abuse Treatment, Cognitive-Behavioral (ICD-10-PCS; principal; 2017-02-09)
DX: F11.20 Opioid dependence, uncomplicated (principal); F11.282 Opioid dependence with opioid-induced sleep disorder; F11.24 Opioid dependence with opioid-induced mood disorder; F17.210 Nicotine dependence, cigarettes, uncomplicated; I10 Essential (primary) hypertension; E78.5 Hyperlipidemia, unspecified; E11.9 Type 2 diabetes mellitus without complications; Z79.84 Long term (current) use of oral hypoglycemic drugs